=== PATIENT | male | born 1995 | race Two or more races ===

== ENCOUNTER 2025-06-08 19:42 | Emergency (ER) | payer MEDICAID, SELFPAY ==
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
[2025-06-08 19:49] VITALS: BP 127/88; PULSE 85; RESP 16; TEMP 36.7; O2SAT 99
--- NOTE | 2025-06-08 19:51 | PC.NURSE ---
PER PT C/O LEFT LEG PAIN, ELBOW AND HEAD.
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
== END 2025-06-08 20:20 ==
LOC: SERX 20:23
PROVIDERS: Emergency Provider Emergency Medicine
DX: Z02.89 Encounter for other administrative examinations (principal); S80.12XA Contusion of left lower leg, initial encounter; V89.9XXA Person injured in unspecified vehicle accident, initial encounter
CPT/HCPCS: 73590; 99283